=== PATIENT | female | born 1970 ===

== ENCOUNTER 2017-08-10 06:39 | Inpatient (IN) | payer OTHER ==
[2017-08-06 10:29] VITALS: BMI 37.3
[2017-08-10] MEDS ORDERED: Bupivacaine HCl 0.5% PF (10 ml) Inj ONE (07:11)
[2017-08-10] MEDS ORDERED: Rocuronium 10 mg/ml (5 ml) ONE ×2 (07:18→09:34)
[2017-08-10] MEDS ORDERED: Midazolam 2 MG/2 ML VIAL ONE (07:18)
[2017-08-10] MEDS ORDERED: Succinylcholine 200 mg/10 ml Inj IV ONE (07:18)
[2017-08-10] MEDS ORDERED: Propofol 10 mg/ml Inj (20 ML) ONE (07:18)
[2017-08-10] MEDS ORDERED: ePHEDrine 50 mg/ml Inj ONE (07:18)
[2017-08-10 08:00] LABS: HEMOGLOBIN 11.5 g/dL (12.0-16.0); MEAN CELL VOLUME 79.1 fl (81.0-99.0); MEAN CORPUSCULAR HEMOGLOBIN 25.4 pg (27.0-31.0); MEAN CORPUSCULAR HGB CONC 32.2 g/dL (33.0-37.0); RBC 4.54 Mil/uL (3.80-5.20); RED CELL DISTRIBUTION WIDTH 16.5 % (11.5-14.5)
[2017-08-10] MEDS ORDERED: Lactated Ringer's 1,000 ML IV ONE ×2 (08:15→08:20)
[2017-08-10] MEDS ORDERED: Desflurane Inhalation Anesthetic Liq (240 ml) ONE (08:29)
[2017-08-10] MEDS ORDERED: Morphine 1 mg/ml preservative-free Inj(Duramorph) ONE (08:40)
[2017-08-10] MEDS ORDERED: Triamcinolone Acetonide 40 mg/mL Inj ONE (09:11)
[2017-08-10] MEDS ORDERED: Lidocaine 2% Inj (20ml) ONE (09:13)
[2017-08-10] MEDS ORDERED: Sodium Chloride 0.9% Inj (10mL) IV ONE ×2 (09:18→10:00)
[2017-08-10] MEDS ORDERED: Lidocaine 2% Inj (20ml) IJ ONE ×2 (09:18→10:00)
[2017-08-10] MEDS ORDERED: Triamcinolone Acetonide 40 mg/mL Inj IM ONE ×2 (09:18→10:00)
[2017-08-10] MEDS ORDERED: Dexamethasone 4 mg/1 ml ONE (09:22)
[2017-08-10] MEDS ORDERED: Neostigmine 1:1000 (1 mg/ml) Inj ONE (09:34)
[2017-08-10] MEDS ORDERED: APROTININ/FIBRINOGEN(TISSEEL) ONE (09:50)
[2017-08-10] MEDS ORDERED: Oxycodone/Acetaminophen 5/325 mg Tab PO PRN (10:34)
[2017-08-10] MEDS: HYDROmorphone 0.5 mg/0.5 ml ISec IVP PRN ×2 (10:50→12:35)
--- NOTE | 2017-08-10 11:09 | PCM.OP ---
Operative Report - Operative Report Date of Surgery/Procedure: 08/10/17 Time of Surgery/Procedure: 11:07 Surgeon: Keren Melendez MD Jewel Oliving Machine Operator: Matt WITT Anesthesia/Sedation: Gen with ET tube Pre-Operative Diagnosis: Chronic pelvic pain. Fibroid uterus. Abnormal uterine bleeding. Prolapse uterus Post-Operative Diagnosis: Chronic pelvic pain. Fibroid uterus. Abnormal uterine bleeding. Prolapse uterus. Endometriosis Indication for Surgery: Worsening chronic pelvic pain, and abnormal bleeding Operative Findings: bulky uterus approx 15 weeks size, possible adenomysis, prolpase uterus epical prolapse, s/p PBT, adhesisons throughtout, left ovarian compelx cyst. normal bladder anatomy Procedure/Operation Description: Total robotic hysterectomy Bilateral salpingectomy >250g. Uterosacroligament suspenssion. LEFT ovarian cystectomy. Enterolysis. Diagnostic cystoscopy. . Detailed Operative Report. This is a 47 years old female with symptomatic uterine prolapse, enlarged fibroid uterus, and abnormal uterine bleeding. The patient completed an extensive preoperative workup, which included an ultrasound, as well as a pap smear, chemistry and hematology studies. The patient reported these symptoms and problems as debilitating, and adversely affecting her quality of life. Following a period of failed conservative management, and patient decision was made to proceed with a more invasive approach to address the above noted problems. A decision was finally made to proceed with a total robotic assisted hysterectomy, bilateral salpingectomy, and vaginal vault suspension. A detailed description of this robotic procedure was given to the patient, all risks and benefits of the surgical modality was reviewed, printed material was also given to the patient regarding robotic surgery. The patient fully understood all the risks and benefits and elected to proceed with this proposed procedure. After proper consent was obtained from the patient was taken to the operating room, proper patient identification was completed. She was placed in dorsal lithotomy position; general anesthesia was induced without difficulty. Her legs were placed in adjustable Kendell stirrups. Careful attention was placed not to over-flex or over-rotate the lower extremities at the hip or the knee joints. She was prepped and draped appropriately for robotic assisted hysterectomy. Emmanuel catheter was inserted under sterile conditions. A weighted speculum was placed in the vagina, anterior lip of cervix was grasped with a tenaculum, and a Shout TV-care uterine manipulator was inserted through the cervix and secured. The weighted speculum and tenaculum were removed from the patient's vagina and attention was turned to the patient's abdomen. Local anesthetic solutions of 0.25% Marcaine with epinephrine were utilized to infiltrate the skin prior to all abdominal skin incisions. A total of 15 mL of 0.25% Marcaine was utilized throughout the procedure. While tenting the abdominal wall, a Veres needle was inserted through the umbilicus and a pneumoperitoneum was obtained. Approximately 1 cm above the umbilical fold, in the midline, a 1 cm incision was made with a scalpel and a trocar was introduced. A robotic camera was inserted and an initial survey of the patient' s abdomen revealed an enlarged bulky fibroid uterus, boggy in appearance approximately 15-16 weeks size. LEFT ovarian cyst complex in appearance, extensive peritoneal and bowel adhesions likely from prior surgeries or infection. The patient was placed in Trendelenburg position ready for a da Lencho robotic system to be docked. 3 robotic ports were utilized for this procedure. The first robotic port was placed on the patient's left side approximately 5 cm superior to the superior crest on the patient's left side, the second robotic port was placed 8 cm right lateral to the camera port and the third robotic port was placed approx. 5 centimeters superior to the right superior iliac crest. All ports were aligned along the same horizontal line on the abdomen in an arch like fashion. An geriatric nurse assistant port was Inserted through a 1 cm incision. For the geriatric nurse assistant port we utilized the Versa step trocar system. All trocars were inserted under direct visualization. The placement of the trocars was all accomplished under careful and meticulous placement under direct visualization. Following the placement of all trocars, the da Lencho robotic system was docked in a parallel method without difficulty. The following instruments were utilized for this procedure: the bipolar cautery device, a monopolar mamadou and finally a ProGrasp. Prior to the start of the hysterectomy, both ureters and their courses were visualized, peristalsis bilaterally. On the patient's right side, the utero-ovarian and the round ligaments were identified cauterized and transected, the broad ligament was divided all the way down to the utero cervical junction bladder flap was then created by transecting the visceroperitoneum over the bladder reflection. In a similar fashion, the left round ligament, utero-ovarian ligament and broad ligament were cauterized sealed and transected, taken down to the level of the cervical uterine junction. Uterine vessels on both sides were sealed and transected. The Uterosacral ligaments were sealed and transected. The monopolar mamadou and PK were utilized to complete the colpotomy incision around the care vaginal ring. Excellent hemostasis was noted. The uterus, cervix, and fallopian tubes were delivered transvaginal through the colpotomy incision and sent to pathology for permanent analysis. Next a complex LEFT ovarian cyst was identified, and sharp and blunt dissection utilized to enucleate this cyst, the cyst was extracted from the patient's abdomen and labeled appropriately and sent to pathology. The colpotomy incision was closed with 2-0 v LOC in a continuous fashion with excellent hemostasis. The vaginal vault suspension was achieved by suspending the vaginal cuff to the base of the uterosacral ligaments bilaterally. For uterosacral ligament suspension portion of the procedure, the ureters were once again identified to avoid possible compromise or kinking while suspending the vaginal vault. A 2-0 permanent suture material ( Mason-Prakash) was utilized to suspend the uterosacral ligaments from the base to the vaginal vault cuff incision including both anterior and posterior aspect of the colpotomy incision. Utilizing a 3-0 Monocryl suture, the peritoneum over the colpotomy incision and uterosacral ligaments was re-approximated in a continuous fashion. The abdomen was throughout irrigated and cleared of all clots and debris. FloSeal as well as Interceed was applied to the incision sites. Excellent hemostasis was again noted. All robotic and laparoscopic instruments removed under direct visualization. The robotic arms were undocked , and a da Lencho robotic system was wheeled away from the patient's bedside. Both geriatric nurse assistant and camera ports were closed at the fascial layer utilizing a 2- 0 Vicryl suture material in interrupted fashion. Pneumoperitoneum was reduced and all skin incisions were closed utilizing 4-0 Monocryl in a subcutaneous fashion. Dermabond was applied to all incisions. At the conclusion of this hysterectomy, a diagnostic cystoscopy was completed. The Emmanuel catheter was removed; the bladder was distended with approximately 350 cc of normal saline. A 30 cystoscope was introduced and a survey of the bladder anatomy was completed. The base, and the dome of the bladder appeared normal, both ureteral orifices appeared normal and were efluxing urine freely. The urethra appeared normal. A Emmanuel catheter was reinserted. Vaginal packing was inserted to be removed the next morning. Patient emerged from general anesthesia without difficulty, and was taken to recovery room in stable condition. Prior to incision the patient received antibiotics, prior to closure sponge lap and needle counts were correct x2. Estimated Blood Loss: 20 Blood Replaced: none Sponge/Instrument Count: count correct times 2 Drains: none Complications: none Specimen: uterus cervix and tubes. left ovarian cyst Discharge & Condition: as per criteria
[2017-08-10] MEDS: Lactated Ringer's 1,000 ML IV SCH (22:00)
[2017-08-11 05:43] VITALS: O2SAT 98
[2017-08-11 06:55] LABS: BASO % 0.2 % (0.0-2.0); EOS % 0.4 % (0.0-4.0); HEMOGLOBIN 10.8 g/dL (12.0-16.0); LYMPH # 2.1 K/uL (1.0-4.3); LYMPH % 25.7 % (20.0-40.0); MEAN CELL VOLUME 78.5 fl (81.0-99.0); MEAN CORPUSCULAR HEMOGLOBIN 25.7 pg (27.0-31.0); MEAN CORPUSCULAR HGB CONC 32.8 g/dL (33.0-37.0); MEAN PLATELET VOLUME 9.3 fl (7.2-11.7); MONO # 0.7 K/uL (0.0-0.8); MONO % 8.5 % (0.0-10.0); NEUT # 5.2 K/uL (1.8-7.0); NEUT % 65.2 % (50.0-75.0); RBC 4.18 Mil/uL (3.80-5.20)
[2017-08-11 07:18] LABS: BLOOD UREA NITROGEN 11 mg/dl (7-17); CALCIUM 8.6 mg/dL (8.4-10.2); GFR AFRICAN-AMERICAN > 60; GFR NON-AFRICAN AMERICAN > 60
[2017-08-11] MEDS: Lactated Ringer's 1,000 ML IV SCH (08:00)
[2017-08-11 08:44] VITALS: RESP 20
--- NOTE | 2017-08-11 11:35 | CP.PCM.PN ---
Subjective - Date & Time of Evaluation Date of Evaluation: 08/11/17 Time of Evaluation: 07:30 - Subjective Subjective: Patient seen and examined at bedside comfortable. Pain controlled with oral meds. Tolerated liquid diet last night. Has not been OOB ambulating as of yet. Objective - Vital Signs/Intake and Output Vital Signs (last 24 hours): Temp Pulse Resp BP Pulse Ox 98.1 F 66 20 110/67 98 08/11/17 08:00 08/11/17 08:00 08/11/17 08:00 08/11/17 08:00 08/11/17 08:00 Intake and Output: 08/11/17 08/11/17 06:59 18:59 Intake Total 1300 Output Total 1200 Balance 100 - Medications Medications: Current Medications Hydromorphone HCl (Dilaudid) 2 mg IVP Q3H PRN PRN Reason: Pain, severe (8-10) Lactated Ringer's (Lactated Ringer's) 1,000 mls @ 100 mls/hr IV .Q10H [facility] Last Admin: 08/11/17 08:00 Dose: 100 mls/hr Ketorolac Tromethamine (Toradol) 30 mg IVP Q6H [facility] Last Admin: 08/11/17 10:45 Dose: 30 mg Ondansetron HCl (Zofran Inj) 4 mg IVP Q6 PRN PRN Reason: Nausea/Vomiting Oxycodone/Acetaminophen (Percocet 5/325 Mg Tab) 2 tab PO Q4H PRN PRN Reason: Pain, moderate (4-7) Stop: 08/13/17 10:35 - Labs Labs: 08/11/17 05:45 08/11/17 05:45 - GI/Abdominal Exam GI & Abdominal Exam: Soft, Normal Bowel Sounds Additional comments: portal sites x5 CDI, mild tenderness secondary to surgery, non-distended Assessment and Plan (1) Fibroid, uterine Assessment & Plan: POD# 1 s/p robotic hysterectomy, b/l salpingectomy -encourage OOB -monitor void -pain control -regular diet -d/c to home today -case and plan d/w Dr. Melendez in agreement Status: Acute
[2017-08-11 16:32] VITALS: BP 121/74; PULSE 68; TEMP 98.2
== END 2017-08-11 17:55 | disposition home or self-care (01) | DRG 743 ==
LOC: H.OPSURG 06:39 → H.PEDS 10:34
PROVIDERS: ADMIT Obstetrics & Gynecology; ATTEND Obstetrics & Gynecology
PROC: 0DNE4ZZ Release Large Intestine, Percutaneous Endoscopic Approach (ICD-10-PCS; 2017-08-10)
PROC: 0UB14ZZ Excision of Left Ovary, Percutaneous Endoscopic Approach (ICD-10-PCS; 2017-08-10)
PROC: 0USG4ZZ Reposition Vagina, Percutaneous Endoscopic Approach (ICD-10-PCS; 2017-08-10)
PROC: 8E0W4CZ Robotic Assisted Procedure of Trunk Region, Percutaneous Endoscopic Approach (ICD-10-PCS; 2017-08-10)
PROC: 0TJB8ZZ Inspection of Bladder, Via Natural or Artificial Opening Endoscopic (ICD-10-PCS; 2017-08-10)
PROC: 0UT9FZZ Resection of Uterus, Via Natural or Artificial Opening With Percutaneous Endoscopic Assistance (ICD-10-PCS; principal; 2017-08-10 07:45)
PROC: 0UT7FZZ Resection of Bilateral Fallopian Tubes, Via Natural or Artificial Opening With Percutaneous Endoscopic Assistance (ICD-10-PCS; 2017-08-10 07:45)
DX: D25.9 Leiomyoma of uterus, unspecified (principal); N81.4 Uterovaginal prolapse, unspecified; N80.0 Endometriosis of uterus; N83.292 Other ovarian cyst, left side; K66.0 Peritoneal adhesions (postprocedural) (postinfection)